=== PATIENT | female | born 1985 | race Asian ===

== ENCOUNTER → 2016-12-29 | Outpatient (CLI) | payer OTHER | END | disposition home or self-care (01) | LOC: RD 07:12 | DX: M25.562 Pain in left knee (principal) ==

== ENCOUNTER 2017-11-05 05:10 | Emergency (ER) | payer OTHER ==
[~2017-11-05] VITALS: Ht 157.5 cm; Wt 95.2 kg
[2017-11-05 05:45] VITALS: Ht 157.5 cm; Wt 95.2 kg
[2017-11-05 07:31] VITALS: BP 127/69
== END 2017-11-05 07:31 | disposition home or self-care (01) ==
LOC: ED 05:10
DX: S83.91XA Sprain of unspecified site of right knee, initial encounter (principal); X50.1XXA Overexertion from prolonged static or awkward postures, initial encounter; Y93.89 Activity, other specified; Y99.8 Other external cause status; Y92.89 Other specified places as the place of occurrence of the external cause
CPT/HCPCS: J1885